=== PATIENT | female | born 1985 | race Caucasian/White ===

== ENCOUNTER 2023-01-19 12:42 | Emergency (ER) | payer BC ==
[2023-01-19 13:46] LABS: BASOPHILS PERCENT AUTO 0.5 % (0.0-1.0); EOSINOPHILS ABSOLUTE AUTO 0.2 K/mm3 (0.0-0.4); EOSINOPHILS PERCENT AUTO 2.2 % (0.0-6.0); HEMATOCRIT 39.7 % (37.0-47.0); HEMOGLOBIN 13.7 gm/dl (12.0-16.0); IMMATURE GRAN ABSOLUTE AUTO 0.02 K/mm3 (0.00-0.05); IMMATURE GRAN PERCENT AUTO 0.2 % (0.0-0.4); LYMPHOCYTES ABSOLUTE AUTO 2.9 K/mm3 (1.0-4.8); LYMPHOCYTES PERCENT AUTO 32.5 % (24.0-44.0); MEAN CORPUSCULAR HEMOGLOBIN 28.8 pg (28.0-32.0); MEAN CORPUSCULAR HGB CONC 34.5 g/dl (32.0-36.0); MEAN CORPUSCULAR VOLUME 83.6 fl (83.0-99.0); MEAN PLATELET VOLUME 10.3 fl (9.4-12.3); MONOCYTES ABSOLUTE AUTO 0.7 K/mm3 (0.0-0.8); MONOCYTES PERCENT AUTO 7.6 % (0.0-8.0); PLATELET COUNT,PLT 342 K/mm3 (150-400); RED BLOOD CELL COUNT 4.75 M/mm3 (4.10-5.30); WHITE BLOOD CELL COUNT,WBC 8.79 K/mm3 (3.9-11.3)
[2023-01-19 13:47] LABS: APPEARANCE,URINE CLEAR (Clear); BILIRUBIN,URINE NEGATIVE (Negative); COLOR,URINE YELLOW (Yellow); GLUCOSE,URINE 2+ (Negative); KETONES,URINE TRACE (Negative); LEUKOCYTE ESTERASE,URINE NEGATIVE (Negative); NITRITE,URINE NEGATIVE (Negative); OCCULT BLOOD,URINE NEGATIVE (Negative); PH,URINE 6.5 (5.0-8.0); PROTEIN,URINE NEGATIVE (Negative)
[2023-01-19 14:08] LABS: A/G RATIO 0.9 (1-2); ALBUMIN 3.5 g/dl (3.4-5.0); ANION GAP 15.1 (5-15); BILIRUBIN TOTAL 0.5 mg/dL (0.2-1.0); BUN/CREATININE RATIO 14.3 (14-18); CALCIUM 9.3 mg/dL (8.5-10.1); CREATININE 0.7 mg/dL (0.55-1.02); EST CRCL DRUG DOSING (CG) 79.04 mL/min; POTASSIUM,K 4.1 mEq/L (3.5-5.1); PROTEIN TOTAL,TP 7.5 g/dl (6.4-8.2)
== END 2023-01-19 16:21 | disposition home or self-care (01) ==
LOC: JD.ED 12:42
DX: O34.11 Maternal care for benign tumor of corpus uteri, first trimester (principal); O24.911 Unspecified diabetes mellitus in pregnancy, first trimester; E11.9 Type 2 diabetes mellitus without complications; Z79.84 Long term (current) use of oral hypoglycemic drugs; Z79.4 Long term (current) use of insulin; Z3A.01 Less than 8 weeks gestation of pregnancy
CPT/HCPCS: 36415; 76817; 76817-26; 80053; 81003; 84702; 85025; 86900; 86901; 99284

== ENCOUNTER 2023-08-25 00:34 | Inpatient (IN) | payer BC, MEDICAID ==
[~2023-08-25 00:34] MED LIST: Oxytocin/Lactated Ringers 30 UNIT/500 ML BAG IV SCH; Sodium Chloride 0.9% 10 ML Syringe FLUSH PRN
[2023-08-25] MEDS: Lactated Ringers 1,000 ML IV SCH (06:06)
[2023-08-25] MEDS ORDERED: Lactated Ringers 1,000 ML IV SCH (06:15)
[2023-08-25] MEDS ORDERED: Morphine PF 10 MG/10 ML SDV ONE (06:49)
[2023-08-25] MEDS ORDERED: ceFAZolin 2 GM Vial ONE (06:49)
[2023-08-25] MEDS ORDERED: Lactated Ringers 1,000 ML ONE (06:49)
[2023-08-25] MEDS ORDERED: Meperidine 50 MG/ML Vial IVPUSH PRN (06:52)
[2023-08-25] MEDS ORDERED: Ondansetron 4 MG/2 ML SDV IVPUSH PRN (06:52)
[2023-08-25] MEDS ORDERED: diphenhydrAMINE 50 MG/ML SDV IVPUSH PRN ×2 (06:52→08:39)
[2023-08-25] MEDS ORDERED: fentaNYL 100 MCG/2 ML SDV IVPUSH PRN (06:52)
[2023-08-25] MEDS: Citric Acid/Sodium Citrate Solution 30 ML Cup PO ONE (07:03)
[2023-08-25] MEDS: Metoclopramide 10 MG/2 ML SDV IVPUSH ONE (07:03)
[2023-08-25 07:13] LABS: HEMATOCRIT 36.7 % (37.0-47.0); HEMOGLOBIN 11.8 gm/dl (12.0-16.0); RED BLOOD CELL COUNT 4.56 M/mm3 (4.10-5.30); WHITE BLOOD CELL COUNT,WBC 8.95 K/mm3 (3.9-11.3)
[2023-08-25] MEDS ORDERED: Ondansetron 4 MG/2 ML SDV ONE (07:13)
[2023-08-25 07:14] LABS: BASOPHILS PERCENT AUTO 0.2 % (0.0-1.0); EOSINOPHILS ABSOLUTE AUTO 0.1 K/mm3 (0.0-0.4); EOSINOPHILS PERCENT AUTO 1.2 % (0.0-6.0); IMMATURE GRAN PERCENT AUTO 0.4 % (0.0-0.4); LYMPHOCYTES ABSOLUTE AUTO 2.2 K/mm3 (1.0-4.8); LYMPHOCYTES PERCENT AUTO 24.9 % (24.0-44.0); MEAN CORPUSCULAR HEMOGLOBIN 25.9 pg (28.0-32.0); MEAN CORPUSCULAR HGB CONC 32.3 g/dl (32.0-36.0); MEAN CORPUSCULAR VOLUME 80.5 fl (83.0-99.0); MEAN PLATELET VOLUME 11.9 fl (9.4-12.3); MONOCYTES ABSOLUTE AUTO 0.7 K/mm3 (0.0-0.8); MONOCYTES PERCENT AUTO 8.3 % (0.0-8.0); NEUTROPHILS ABSOLUTE AUTO 5.8 K/mm3 (1.8-7.7); PLATELET COUNT,PLT 241 K/mm3 (150-400)
[2023-08-25 07:15] LABS: IMMATURE GRAN ABSOLUTE AUTO 0.04 K/mm3 (0.00-0.05)
[2023-08-25] MEDS ORDERED: Phenylephrine 1% 10 MG/ML SDV ONE (07:26)
[2023-08-25] MEDS ORDERED: ePHEDrine 50 MG/ML SDV ONE (07:29)
[2023-08-25] MEDS ORDERED: Oxytocin/Lactated Ringers 30 UNIT/500 ML BAG IV ONE (07:43)
[2023-08-25] MEDS ORDERED: Ketorolac 30 MG/ML SDV ONE (07:54)
[2023-08-25] MEDS ORDERED: Naloxone 0.4 MG/ML SDV IVPUSH PRN (08:39)
[2023-08-25] MEDS ORDERED: Acetaminophen/oxyCODONE 325-5 MG Tab PO PRN (08:39)
[2023-08-25] MEDS ORDERED: Sodium Chloride 0.9% 10 ML Syringe FLUSH PRN (08:39)
[2023-08-25] MEDS ORDERED: ePHEDrine 50 MG/ML SDV IVPUSH PRN (08:39)
[2023-08-25] MEDS ORDERED: Dextrose 5%-Lactated Ringers 1,000 ML IV SCH (08:45)
[2023-08-25] MEDS ORDERED: Insulin Lispro 100 Unit/ML 3 ML KwikPen SUBCUT SCH (09:00)
[2023-08-25] MEDS ORDERED: Sodium Chloride 0.9% 10 ML Syringe FLUSH SCH (09:00)
[2023-08-25] MEDS: Ondansetron 4 MG/2 ML SDV IV PRN (11:39)
[2023-08-25] MEDS: Insulin Lispro 100 Unit/ML 3 ML KwikPen SUBCUT SCH (11:39)
[2023-08-25] MEDS: Ketorolac 30 MG/ML SDV IVPUSH SCH (15:10)
[2023-08-25] MEDS ORDERED: INSULIN GLARGINE HUM REC ANLOG 100 UNIT/ML SUBCUT SCH (21:00)
[2023-08-25] MEDS: Insulin Glargine,Human Rec. Analog 100 Units/ML 3 ML Pen SUBCUT SCH (21:35)
[2023-08-26 06:55] LABS: HEMATOCRIT 33.9 % (37.0-47.0); HEMOGLOBIN 10.8 gm/dl (12.0-16.0); MEAN CORPUSCULAR HEMOGLOBIN 25.7 pg (28.0-32.0); MEAN CORPUSCULAR HGB CONC 31.9 g/dl (32.0-36.0); MEAN CORPUSCULAR VOLUME 80.7 fl (83.0-99.0); MEAN PLATELET VOLUME 11.9 fl (9.4-12.3); PLATELET COUNT,PLT 234 K/mm3 (150-400); WHITE BLOOD CELL COUNT,WBC 11.22 K/mm3 (3.9-11.3)
[2023-08-26] MEDS: Docusate Sodium 100 MG Cap PO PRN (09:38)
[2023-08-26] MEDS: Ibuprofen 600 MG Tab PO SCH (09:38)
[2023-08-26] MEDS: Metoclopramide 10 MG/2 ML SDV IM ONE (15:14)
[2023-08-26] MEDS: Citric Acid/Sodium Citrate Solution 30 ML Cup PO ONE (15:14)
[2023-08-26] MEDS: Acetaminophen/oxyCODONE 325-5 MG Tab PO PRN (20:43)
[2023-08-27] MEDS ORDERED: Ibuprofen 600 MG Tab PO SCH (12:45)
== END 2023-08-27 09:55 | disposition home or self-care (01) | DRG 540 ==
LOC: JD.OB 05:34
PROVIDERS: ADMIT Obstetrics & Gynecology; ATTEND Obstetrics & Gynecology
PROC: 10D00Z1 Extraction of Products of Conception, Low, Open Approach (ICD-10-PCS; principal; 2023-08-25 07:30)
DX: O24.12 Pre-existing type 2 diabetes mellitus, in childbirth (principal); O34.211 Maternal care for low transverse scar from previous cesarean delivery; Z37.0 Single live birth; Z3A.37 37 weeks gestation of pregnancy; Z98.890 Other specified postprocedural states
CPT/HCPCS: 01961; 36415; 59025; 82947; 85025; 85027; 86592; 86850; 86900; 86901; A9270-GY; J0690; J1596; J1815; J1815-GY; J1885; J2274; J2371; J2405; J2765; J3490; J7120; J7999

== ENCOUNTER 2023-08-30 10:47 | Emergency (ER) | payer BC | END 2023-08-30 12:07 | disposition left against medical advice (07) | LOC: JD.ED 10:47 | DX: Z53.21 Procedure and treatment not carried out due to patient leaving prior to being seen by health care provider (principal) ==